=== PATIENT | female | born 1975 | race Caucasian/White ===

== ENCOUNTER 2019-10-13 18:21 | Emergency (ER) | payer MEDICAID ==
[~2019-10-13] VITALS: Ht 154.9 cm; Wt 79.5 kg
[2019-10-13 18:26] VITALS: BP 128/80
[2019-10-13] MEDS ORDERED: LIDOcaine 1% W/epiNEPHrine 1:200,000 10ml vial IJ ONE (18:55)
[2019-10-13] MEDS ORDERED: bacitracin 15gm ointment TP ONE (18:55)
[2019-10-13] MEDS ORDERED: BACDS PO (19:04)
[2019-10-13] MEDS ORDERED: METR-159 PO (19:04)
== END 2019-10-13 19:37 | disposition home or self-care (01) ==
LOC: ER 18:23
DX: S01.511A Laceration without foreign body of lip, initial encounter (principal); Z88.0 Allergy status to penicillin; Z88.6 Allergy status to analgesic agent; Z88.8 Allergy status to other drugs, medicaments and biological substances; Z79.899 Other long term (current) drug therapy; W54.0XXA Bitten by dog, initial encounter; Y93.89 Activity, other specified; Y92.89 Other specified places as the place of occurrence of the external cause; Y99.8 Other external cause status
CPT/HCPCS: 12011; 99283